=== PATIENT | female | born 1990 | race African-American/Black ===

== ENCOUNTER 2022-10-03 23:49 | Emergency (ER) | payer OTHER, SELFPAY ==
[2022-10-03 23:53] VITALS: BP 129/73; PULSE 67; RESP 20; TEMP 36.5; O2SAT 100
[2022-10-04 00:27] LABS: Basophils Percent Auto 0.8 % (0.2-1.2); Eosinophils Absolute Auto 0.1 K/mm3 (0-0.3); Eosinophils Percent Auto 1.7 % (0-4.4); Hematocrit 34.6 % (37.0-47.0); Immature Granulocyte Absolute 0.01 K/mm3 (0.00-0.031); Immature Granulocyte Percent A 0.2 % (0-0.5); Lymphocytes Absolute Auto 2.03 K/mm3 (0.9-3.2); Lymphocytes Percent Auto 39.4 % (18.3-44.2); Mean Corpuscular HGB Conc 31.8 g/dl (32-36); Mean Corpuscular Hemoglobin 26.8 pg (26-34); Mean Corpuscular Volume 84.2 fl (80-100); Monocytes Absolute Auto 0.2 K/mm3 (0.1-0.6); Monocytes Percent Auto 3.7 % (2.6-8.5); Neutrophils Absolute Auto 2.8 K/mm3 (1.3-6.7); Neutrophils Percent Auto 54.2 % (45.5-73.1); Platelet Count Result 203 k/mm3 (150-375); Red Blood Count 4.11 M/mm3 (4.2-5.4); Red Cell Distribution Width 15.7 % (11.5-14.5); White Blood Count 5.2 K/mm3 (4.5-10.0)
[2022-10-04 00:40] LABS: Ethanol < 10 mg/dL (<10)
--- NOTE | 2022-10-04 00:49 | PC.NURSE ---
pt. to ed H1 w/ cc panic attack at work. pt. denies SI HI. pt. at [facility] for suicide watch and discharged pt. given hydroxyzine for anxiety. pt. states recent miscarriage and divorce caused the initial anxiety and suicide watch. pt. states scheduled for an outpatient appointment in October.
[2022-10-04 00:56] LABS: Alanine Aminotransferase 14 U/L (6-35); Albumin Level 4.3 g/dL (3.5-5.1); Alkaline Phosphatase 61 U/L (38-126); Anion Gap 7 mmol/L (8-16); Aspartate Amino Transferase 22 U/L (14-36); Bilirubin,Total 0.4 mg/dL (0.2-1.3); Blood Urea Nitrogen 6 mg/dL (7-17); Calcium 8.6 mg/dL (8.4-10.2); Carbon Dioxide 22 mmol/L (22-30); Chloride 106 mmol/L (98-107); Estimated CRCL calculation 95 ml/min; Estimated Glomerular Filt Rate > 60; Glucose 102 mg/dL (65-110); Potassium 3.1 mmol/L (3.4-5.0); Sodium 135 mmol/L (137-145)
[2022-10-04 01:32] LABS: Appearance Urine Clear (Clear); Bacteria Urine Trace /hpf; Bilirubin Urine 1+ (Negative); Blood Urine 3+ (Negative); Color Urine Yellow (Yellow); Glucose Urine UA Negative (Negative); Ketones Urine Trace mg/dL (Negative); Leukocyte Esterase Ur Negative LEU/UL (Negative); Mucus Urine Heavy /lpf; Nitrate Urine Negative (Negative); Protein Urine 1+ mg/dL (Negative); Specific Grav Ur 1.025 (1.001-1.035); Squamous Epithelial Cell Urine Few /hpf (Few); WBC Urine 0-3 /hpf
[2022-10-04 01:33] LABS: Add Urine Microscopic? YES
--- NOTE | 2022-10-04 01:59 | ED.GENADULT ---
HPI - General Adult General Chief complaint: Anxiety Stated complaint: anxiety attack Time Seen by Provider: 10/04/22 01:04 History of Present Illness HPI narrative: Patient 32-year-old female presents emerged part with chief complaint of panic attack. Patient reports that this evening she felt extremely anxious and started breathing fast her fingertips started tingling and cramping up she also noticed that her lips started getting tingling patient reports that she has had a recent admission for suicidal ideation still had some thoughts of suicidal ideology but currently has no plan. Related Data Allergies Allergy/AdvReac Type Severity Reaction Status Date / Time No Known Allergies Allergy Verified 10/03/22 23:50 Review of Systems Review of Systems: A 10 system review of systems was completed on the patient and is negative except for what is stated in the HPI. Nursing and ancillary documentation was reviewed. Exam Narrative: GENERAL: Well-appearing, well-nourished, and in no acute distress. HEAD: Normocephalic, atraumatic. EYES: PERRLA and EOMI. ENT: Nares clear, no rhinorrhea or epistaxis. Mucous membranes moist. NECK: Supple. CHEST: Clear to auscultation. No respiratory distress. HEART: Regular rate and rhythm. No murmur heard. Normal peripheral pulses. ABDOMEN: Soft, nontender, nondistended, normal active bowel sounds. EXTREMITIES: Normal range of motion. No edema. SKIN: Warm, dry, no rash. NEURO: No focal deficits. Alert and oriented x3. PSYCH: Normal mood and affect. Course Vital Signs Vital signs: Vital Signs Temperature 36.5 C 10/03/22 23:53 Pulse Rate 67 10/03/22 23:53 Respiratory Rate 20 10/03/22 23:53 Blood Pressure 129/73 10/03/22 23:53 Pulse Oximetry 100 10/03/22 23:53 Oxygen Delivery Room Air 10/03/22 23:53 Temperature 36.5 C 10/03/22 23:53 Pulse Rate 67 10/03/22 23:53 Respiratory Rate 20 10/03/22 23:53 Blood Pressure 129/73 10/03/22 23:53 Pulse Oximetry 100 10/03/22 23:53 Oxygen Delivery Room Air 10/03/22 23:53 Medical Decision Making [facility] Narrative Medical decision making narrative: Patient is medically cleared for psychiatric evaluation referral and placement. The patient's presenting symptoms today are similar to a panic attack with hyperventilation. Patient will be evaluated by crisis since she has had recent suicidal thoughts. 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 and was cleared for outpatient follow-up Vital Signs Vital Signs: Vital Signs Temperature 36.5 C 10/03/22 23:53 Pulse Rate 67 10/03/22 23:53 Respiratory Rate 20 10/03/22 23:53 Blood Pressure 129/73 10/03/22 23:53 Pulse Oximetry 100 10/03/22 23:53 Oxygen Delivery Room Air 10/03/22 23:53 Temperature 36.5 C 10/03/22 23:53 Pulse Rate 67 10/03/22 23:53 Respiratory Rate 20 10/03/22 23:53 Blood Pressure 129/73 10/03/22 23:53 Pulse Oximetry 100 10/03/22 23:53 Oxygen Delivery Room Air 10/03/22 23:53 Lab Data 10/04/22 00:11 10/04/22 00:11 Labs: Lab Results 10/04/22 10/04/22 10/04/22 Range/Units 00:11 00:11 00:11 WBC 5.2 (4.5-10.0) K/mm3 RBC 4.11 L (4.2-5.4) M/mm3 Hgb 11.0 L (12.0-15.0) g/dL Hct 34.6 L (37.0-47.0) % MCV 84.2 (80-100) fl MCH 26.8 (26-34) pg MCHC 31.8 L (32-36) g/dl RDW 15.7 H (11.5-14.5) % Plt Count 203 (150-375) k/mm3 MPV 11.0 H (7.4-10.4) fl Immature Gran % (Auto) 0.2 (0-0.5) % Neut % (Auto) 54.2 (45.5-73.1) % Lymph % (Auto) 39.4 (18.3-44.2) % Gaston % (Auto) 3.7 (2.6-8.5) % Eos % (Auto) 1.7 (0-4.4) % Baso % (Auto) 0.8 (0.2-1.2) % Lymph # (Auto) 2.03 (0.9-3.2) K/mm3 Gaston # (Auto) 0.2 (0.1-0.6) K/mm3 Eos # (Auto) 0.1 (0-0.3) K/mm3 Baso # (Auto) 0.0 (0.0-0.1) K/mm3 Abs Immat Gran (auto) 0.01 (0.00-0.031) K/mm3 Absolute Neuts (auto) 2.8 (1.3-6.7) K/mm3 Absolute Nucleate
[2022-10-04 02:02] LABS: Amphetamine Screen Urine Negative (Negative); Barbiturate Screen Urine Negative (Negative); Benzodiazepines Screen Urine Negative (Negative); Cannabinoid Screen Urine Negative (Negative); Cocaine Screen Urine Negative (Negative); Methadone Screen Urine Negative (Negative); Opiate Screen Urine Negative (Negative); Phencyclidine Screen Urine Negative (Negative)
--- NOTE | 2022-10-04 02:09 | PC.NURSE ---
Per BREN Del Angel pt. is medically cleared
[2022-10-04 03:02] LABS: Influenza A QL RT-PCR Negative (Negative); Influenza B QL RT-PCR Negative (Negative); SARS-CoV-2 RNA PCR Negative
== END 2022-10-04 05:22 | disposition home or self-care (01) ==
PROVIDERS: Emergency Provider Emergency Medicine
DX: F41.0 Panic disorder [episodic paroxysmal anxiety] (principal); Z20.822 Contact with and (suspected) exposure to COVID-19
CPT/HCPCS: 36415; 80053; 80307; 81001; 81025; 84443; 85025; 87636; 99284